=== PATIENT | female | born 1950 | race Caucasian/White ===

== ENCOUNTER → 2023-08-31 | Outpatient (CLI) | payer OTHER ==
[2023-08-31 17:58] LABS: Creatinine, Urine Random 72.3 mg/dL (27.00-270.00); Microalb/Creat Ratio UR, Rand 8.022 mg/g (0.000-30.000); Microalbumin, Random Urine 5.8 mg/L (0.000-20.000)
== END | disposition home or self-care (01) ==
LOC: LAB SHORT 14:37 → LAB 14:37
PROVIDERS: Family Medicine
DX: E11.22 Type 2 diabetes mellitus with diabetic chronic kidney disease (principal); N18.9 Chronic kidney disease, unspecified; E11.59 Type 2 diabetes mellitus with other circulatory complications; E11.42 Type 2 diabetes mellitus with diabetic polyneuropathy; E11.69 Type 2 diabetes mellitus with other specified complication
CPT/HCPCS: 82043; 82570

== ENCOUNTER → 2025-06-20 | Outpatient (CLI) | payer OTHER ==
[2025-06-20 20:27] LABS: Creatinine, Urine Random 59.7 mg/dL (27.00-270.00); Microalb/Creat Ratio UR, Rand 16.466 mg/g (0.000-30.000); Microalbumin, Random Urine 9.83 mg/L (0.000-20.000)
== END | disposition home or self-care (01) ==
LOC: LAB SHORT 15:49 → LAB 15:49
PROVIDERS: Family Medicine
DX: E11.22 Type 2 diabetes mellitus with diabetic chronic kidney disease (principal); N18.9 Chronic kidney disease, unspecified; E11.42 Type 2 diabetes mellitus with diabetic polyneuropathy; E11.59 Type 2 diabetes mellitus with other circulatory complications; E11.69 Type 2 diabetes mellitus with other specified complication
CPT/HCPCS: 82043; 82570

== ENCOUNTER 2025-09-24 05:59 | Day surgery (SDC) | payer OTHER ==
[~2025-09-24] VITALS: Ht 154.9 cm; Wt 83.4 kg
[2025-09-24] VITALS (17 sets, daily range): BP systolic 99–171; BP diastolic 62–94
[~2025-09-24 05:59] MED LIST: ACET325 PO; PREG75 PO; ZESTRIL40 M1 PO; Zocor40 MG PO
[2025-09-24] MEDS ORDERED: Rocuronium Bromide 10 MG/ML 5ML Injection IV ONE ×2 (06:12→08:36)
[2025-09-24] MEDS ORDERED: Ondansetron HCl 2 MG / ML 2ML Vial ONE (06:12)
[2025-09-24] MEDS ORDERED: Ketorolac Tromethamine 30mg Vial ONE (06:12)
[2025-09-24] MEDS ORDERED: Dexamethasone Sod Phos 10 MG/ML 1ML VIAL ONE (06:12)
[2025-09-24] MEDS ORDERED: FentaNYL Citrate 50 MCG/ML 2 ML Injection ONE ×4 (06:13→10:59)
[2025-09-24] MEDS ORDERED: Sugammadex Sodium 200 MG/2ML SDV (100 MG/ML) ONE (06:13)
[2025-09-24] MEDS ORDERED: Ondansetron HCl 2 MG / ML 2ML Vial IV PRN ×2 (06:25→10:35)
[2025-09-24] MEDS ORDERED: Metoclopramide HCl 5MG / ML 2ML Vial IV PRN (06:25)
[2025-09-24] MEDS ORDERED: Citric Acid/Sodium Citrate 30 ML BTL PO ONE (06:30)
[2025-09-24] MEDS ORDERED: Albuterol 2.5 MG/3 ML VIAL INH PRN (06:30)
[2025-09-24] MEDS ORDERED: FentaNYL Citrate 50 MCG/ML 2 ML Injection IV PRN ×2 (06:30)
[2025-09-24] MEDS ORDERED: ePHEDrine Sulfate 50 MG/ML 1ML Injection IV PRN (06:30)
[2025-09-24] MEDS ORDERED: Bupivacaine 0.5% HCl 5 MG/ML 30MLVIAL ONE (06:55)
[2025-09-24] MEDS ORDERED: Midazolam HCl 1MG / ML 2ML Vial IV ONE (07:00)
[2025-09-24] MEDS ORDERED: Phenylephrine HCl 100 MCG/ML-NS 10MLSYR (1MG/10ML) ONE (07:51)
[2025-09-24] MEDS ORDERED: Enalaprilat 1.25 MG/ML 2ML Vial IV PRN (09:10)
[2025-09-24] MEDS ORDERED: FLU VACC TS2025(65UP)/MF59C/PF 45 MCG/0.5 ML SYRINGE IM SCH (10:40)
[2025-09-24] MEDS ORDERED: HYDROmorphone HCl/Pf 1MG SYR IV PRN (10:40)
--- NOTE | 2025-09-24 12:12 | NUR ---
PT TO UNIT @1145. VSS. AXO4. MOANING IN PAIN. IV DILAUDID ADMINISTERED. LAP SITES X3 CDI ABDOMINALLY. PAIN RELATED TO L ABD PAIN MOSTLY. ABD BINDER IN PLACE. SPOUSE IN ROOM, CALL LIGHT WITHIN REACH. WATER/JELLO/CRACKERS ON BEDSIDE TABLE- PT INITIATING EATING SLOWLY.
[2025-09-24] MEDS ORDERED: OXYC5 PO (15:54)
--- NOTE | 2025-09-24 17:00 | NUR ---
DC POST ASSUMPTION, PT AXO4. VSS. PT PAIN WITHIN TOLERABLE LIMITS NOW. VOIDED. TOLERATED PO INTAKE WELL. LAP SITES X3 CDI. ABD BINDER IN PLACE. NOTIFIED DR COOPER OF PT'S REQUEST TO DC AND MEETING CRITERIA. MEDS SENT TO [facility]. PICKED UP MEDS. DC INSTRUCTIONS PROVIDED TO PT AND SPOUSE. PT BELONGINGS PACKED UP. PT GETTING DRESSED NOW. IV PULLED. AID TO WHEEL PT OUT TO CAR.
[2025-09-25] MEDS ORDERED: Enoxaparin 40 MG/0.4 ML SYR SC SCH (09:00)
== END 2025-09-24 17:11 | disposition home or self-care (01) ==
LOC: ORSCMMR 05:59 → ORD 07:30 → ORSCMMR 07:30 → SURS 11:44 → ORSCMMR 17:11
PROVIDERS: Surgery
PROC: 0WUF4JZ Supplement Abdominal Wall with Synthetic Substitute, Percutaneous Endoscopic Approach (ICD-10-PCS; principal; 2025-09-24 07:30)
PROC: 8E0W4CZ Robotic Assisted Procedure of Trunk Region, Percutaneous Endoscopic Approach (ICD-10-PCS; principal; 2025-09-24 07:30)
DX: K43.0 Incisional hernia with obstruction, without gangrene (principal); I12.9 Hypertensive chronic kidney disease with stage 1 through stage 4 chronic kidney disease, or unspecified chronic kidney disease; E11.22 Type 2 diabetes mellitus with diabetic chronic kidney disease; N18.30 Chronic kidney disease, stage 3 unspecified; Z79.899 Other long term (current) drug therapy; E66.9 Obesity, unspecified; Z68.34 Body mass index [BMI] 34.0-34.9, adult; E78.5 Hyperlipidemia, unspecified
CPT/HCPCS: 82947; A9270; C1781; J1100; J1171; J1885; J2250; J2371; J2405; J2704; J3010; J7120